=== PATIENT | male | born 1955 | race Asian ===

== ENCOUNTER → 2022-06-03 12:01 | Outpatient (CLI) | payer MEDICARE, SELFPAY ==
[2022-06-03 20:05] LABS: Hemoglobin A1C% w Est Avg Glu 8.3 % (4.0-6.0)
[2022-06-03 20:11] LABS: BUN Creatinine Ratio 18.3 (6-22); Blood Urea Nitrogen 20 mg/dL (9-20); Calcium 9.3 mg/dL (8.4-10.2); Carbon Dioxide 25 mmol/L (22-32); Chloride 99 mmol/L (98-107); Cholesterol 246 mg/dL (140-199); Estimated Glomerular Filt Rate > 60 mL/min (>60); Glucose 293 mg/dL (80-110); HDL Cholesterol 29 mg/dL (40-60); HEMOLYSIS 31 (0-50); Potassium 4.8 mmol/L (3.4-5.1); Sodium 136 mmol/L (137-145)
[2022-06-03 20:51] LABS: Creatinine Urine Random 93.9 mg/dL
[2022-06-03 20:56] LABS: Microalbumin Urine Random 12.4 mg/dL (0-1.6)
[2022-06-03 22:23] LABS: Triglycerides 2874 mg/dL (35-150)
== END ==
PROVIDERS: PCP Family Medicine; Visit Provider Family Medicine
DX: E78.2 Mixed hyperlipidemia (principal); E11.69 Type 2 diabetes mellitus with other specified complication
CPT/HCPCS: 80048; 80061; 82043; 82570; 83036

== ENCOUNTER → 2023-06-18 10:34 | Outpatient (CLI) | payer MEDICARE, SELFPAY ==
[2023-06-18 19:53] LABS: Alanine Aminotransferase 18 IU/L (<50); Aspartate Aminotransferase 20 IU/L (17-59); Cholesterol 285 mg/dL (140-199); HDL Cholesterol 42 mg/dL (40-60); Hemoglobin A1C% w Est Avg Glu 7.6 % (4.0-6.0)
[2023-06-18 20:11] LABS: Triglycerides 719 mg/dL (35-150)
== END ==
PROVIDERS: PCP Family Medicine; Visit Provider Internal Medicine
DX: E11.49 Type 2 diabetes mellitus with other diabetic neurological complication (principal); E78.00 Pure hypercholesterolemia, unspecified; E11.69 Type 2 diabetes mellitus with other specified complication
CPT/HCPCS: 80061; 83036; 84450; 84460